=== PATIENT | female | born 1955 | race Two or more races ===

== ENCOUNTER 2018-01-17 06:54 | Day surgery (SDC) | payer BC ==
[~2018-01-17] VITALS: Ht 165.1 cm; Wt 72.6 kg
[2018-01-17] VITALS (7 sets, daily range): BP systolic 109–128; BP diastolic 48–75
--- NOTE | 2018-01-17 06:46 | Anethesia Preoperative Eval ---
Anesthesia Pre-op PMH/ROS General Date of Evaluation: Jan 17, 2018 Time of Evaluation: 06:46 Anesthesiologist: deborah ASA Score: ASA 1 Mallampati Score Class I : Soft palate, uvula, fauces, pillars visible Class II: Soft palate, uvula, fauces visible Class III: Soft palate, base of uvula visible Class IV: Only hard plate visible Mallampati Classification: Class II Surgeon: valeria Diagnosis: gerd Surgical Procedure: egd/colonoscopy Anesthesia History: none Social History: smoking - nonsmoker Family History: no anesthesia problems Allergies: Coded Allergies: No Known Allergies (Unverified , 01/14/18) Medications: see eMAR Anesthesia Pre-op Phys. Exam Physician Exam Last Vital Signs Date Time Temp Pulse Resp B/P (MAP) Pulse Ox O2 Delivery O2 Flow Rate FiO2 01/17/18 07:33 97.7 78 20 119/69 Room Air 97.7 Constitutional: NAD Neurologic: CN 2-12 intact Cardiovascular: RRR Respiratory: CTA Gastrointestinal: S/NT/ND Airway Exam Mallampati Score: Class II MO: full Neck: supple TMD: 2fb ROM: full Anesthesia Pre-op A/P Risk Assessment & Plan Assessment: asa1 Plan: mac Status Change Before Surgery: No Pre-Antibiotics Drug: MARIELENA Mallory Jan 17, 2018 06:46
[2018-01-17] MEDS ORDERED: Midazolam 2mg/2ml Inj IVP PRN (07:00)
[2018-01-17] MEDS ORDERED: fentaNYL 100 mcg/2 mL IV PRN (07:00)
[2018-01-17] MEDS ORDERED: LR 1000ml 1,000 ML IVLG SCH (07:00)
[2018-01-17] MEDS ORDERED: Atropine Inj 1mg/10ml Syr IV PRN (07:00)
[2018-01-17] MEDS ORDERED: DiphenhydrAMINE 50mg/ml Inj IVP PRN (07:00)
[2018-01-17] MEDS ORDERED: MULTIVITAMINS1 EAC2 ORAL (07:29)
[2018-01-17] MEDS ORDERED: CALCIUM500 M2 PO (07:29)
--- NOTE | 2018-01-17 07:45 | Short Stay Surgery H&P ---
History of Present Illness History of Present Illness Chief Complaint screening colon and abdominal pains HPI Gin Salas is a 63 year old female who was admitted on for GERD/ screening colon Patient History Allergies: Coded Allergies: No Known Allergies (Unverified , 01/14/18) PAST MEDICAL HISTORY: (1) Hyperlipidemia (2) H/O abdominal hysterectomy (3) External hemorrhoids Past Surgeries: Social History: Medication History Scheduled Calcium Carbonate (Calcium), 500 MG PO DA, (Reported) Multivitamins* (Multivitamins*), 1 TAB ORAL DAILY, (Reported) Review of Systems Cardiovascular: Reports: no symptoms Respiratory: Reports: no symptoms Skeletal: Reports: no symptoms Gastrointestinal: Reports: no symptoms Genitourinary: Reports: no symptoms Neurologic: Reports: no symptoms Endocrine: Reports: no symptoms Hematologic: Reports: no symptoms Physical Exam Vital Signs Last Vital Signs Date Time Temp Pulse Resp B/P (MAP) Pulse Ox O2 Delivery O2 Flow Rate FiO2 01/17/18 07:33 97.7 78 20 119/69 Room Air 97.7 Skin: normal HENT: normal Heart: normal Lungs: normal Abdomen: normal Extremities: normal Genitourinary: normal Plan Plan of Care Uper and lower GI endoscopy Preop Interventions None. Summary of Findings See the reports Final Diagnosis: Attestation Are the patient's medical conditions optimized for surgery? Attestation Response: yes KEEGAN MATOS Jan 17, 2018 07:45
--- NOTE | 2018-01-17 07:46 | Pre-Procedure Note/Attestation ---
Pre-Procedure Note/Attestation Complete Prior to Procedure Planned Procedure: left Procedure Narrative: Examination of the upper and the lower GI tract via endoscopy Indications for Procedure Pre-Operative Diagnosis: R/O colon polyp/CA and gastritis Attestation I attest that I discussed the nature of the procedure; its benefits; risks and complications; and alternatives (and the risks and benefits of such alternatives ), prior to the procedure, with the patient (or the patient's legal visitor services representative). I attest that, if there was a reasonable possibility of needing a blood transfusion, the patient (or the patient's legal visitor services representative) was given the [place] [employer] standardized written summary, pursuant to the [employer] Blood Safety Act ([place] Health and Safety Code # 1645, as amended). I attest that I re-evaluated the patient just prior to the surgery and that there has been no change in the patient's H&P, except as documented below: KEEGAN MATOS Jan 17, 2018 07:46
[2018-01-17] MEDS ORDERED: LR 1000ml ONE (08:00)
[2018-01-17] MEDS ORDERED: Propofol 200mg/20ml IV ONE (08:00)
[2018-01-17] MEDS ORDERED: Lidocaine 1% MPF 10mg/ml 5ml ONE (08:00)
--- NOTE | 2018-01-17 08:25 | Endoscopy Procedure Note ---
Endoscopy Procedure Note General Indication for Procedure: Screening colonoscopy/ GERDs Procedures Performed: EGD - Rare gastric hyperplstic polyps over greator curvator, (non significant) biopsied, otherwise normal upper GI endoscopy, random gastric biopsy also obtained from gastric body area., colonoscopy - Internal hemorrhoids with rare recto-sigmoids diverticular leasions, otherwise normal total colonoscopy with polyps noted. Specimen: yes Pt Tolerated Procedure Well: Yes Estimated Blood Loss: none Anesthesia Anesthesiologist: Dr. Victoria Anesthesia: moderate sedation Medications Medication Given: see anesthesia record Inserted Devices Implant(s) used?: No Quality Quality of Bowel Preparation: Fair Did scope reach the cecum?: Yes Was there any complications?: No GI Core Measures 50 yrs or older w/o bx or poly: Yes 10yrs. F/U not recommended: Yes 10 yrs. F/U needed: Yes 18 years or older w/prev. colo: No <3yrs. since last colonoscopy: No System Reason:<3 yrs.: Last colonoscopy >= to 3yrs: Yes KEEGAN MATOS Jan 17, 2018 08:25
--- NOTE | 2018-01-17 08:26 | Discharge Instructions ---
Discharge Instructions Discharge Instructions Follow up with: See the docotor in office after two weeks. For Congestive Heart Failure Reminder Report to your physician any weight gain of 5 pounds or more in one week. KEEGAN MATOS Jan 17, 2018 08:25
--- NOTE | 2018-01-17 08:40 | Immediate Post-Op Evaluation ---
Immediate Post-Op Evalulation Immediate Post-Op Evalulation Procedure: egd/colonoscopy Date of Evaluation: Jan 17, 2018 Time of Evaluation: 08:37 IV Fluids: 200ml lr Blood Products: none Estimated Blood Loss: negligible Blood Pressure Systolic: 128 Blood Pressure Diastolic: 54 Pulse Rate: 60 Respiratory Rate: 18 O2 Sat by Pulse Oximetry: 97 Temperature (Fahrenheit): 97.2 Pain Score (1-10): 0 Nausea: No Vomiting: No Complications none Patient Status: awake, reacts, patent Hydration Status: adequate Drug: MARIELENA Mallory Jan 17, 2018 08:40
--- NOTE | 2018-01-17 08:41 | 48 Hour Post Anesthesia Eval ---
Post Anesthesia Evaluation Procedure: egd/colonoscopy Date of Evaluation: Jan 17, 2018 Time of Evaluation: 08:40 Blood Pressure Systolic: 113 0: 56 Pulse Rate: 66 Respiratory Rate: 18 Temperature (Fahrenheit): 97.2 O2 Sat by Pulse Oximetry: 97 Airway: patent Nausea: No Vomiting: No Pain Intensity: 0 Hydration Status: adequate Cardiopulmonary Status: stable Mental Status/LOC: patient returned to baseline Post-Anesthesia Complications: none Follow-up care needed: N/A MARIELENA HERNANDEZ Jan 17, 2018 08:41
--- NOTE | 2018-01-17 16:15 | Procedure Note ---
DATE OF PROCEDURE: 01/17/2018 PROCEDURE: Esophagogastroduodenoscopy with biopsy. SURGEON: Ana Mieer M.D. PREOPERATIVE DIAGNOSES: Abdominal pain and GERD. POSTOPERATIVE DIAGNOSIS: Rare hyperplastic gastric polyps found in the greater curvature, biopsy nonsignificant, otherwise, complete normal upper GI endoscopy. Biopsy was also obtained from gastric body. MEDICATION USED: Per Dr. Victoria, anesthesiologist. INSTRUMENT: GIF Olympus upper GI video endoscope. DESCRIPTION OF PROCEDURE: The patient, after arriving endoscopy unit, was told about risks and benefits of the procedure, which she accepted and signed informed consent. She was then put on the left lateral decubitus position. After adequate IV sedation, the scope was gently passed through the cricopharyngeal area, was lodged into the upper esophagus and gradually advanced towards the gastroesophageal junction. The entire length of the esophagus looked normal without any evidence of varices, inflammatory process, stricture, polyps, etc. GE junction also looked completely normal. No Castillo's or hiatal hernia noted. The scope at this time was guided into the stomach. Gastric cavity was distended and gradually, the areas of the fundus and the body and the antrum were examined. An incidental findings of very few 2 mm hyperplastic type polypoid lesion was found over the mid body of the greater curvature of the stomach. These areas were biopsied as well as obtaining another biopsy from gastric body and sent to the pathology lab. The areas of the antrum, pyloric channel, duodenum, the first and second portion of it were all completely normal. At this point, the scope was pulled back into the stomach. A retroflexion maneuver was applied. The area of the gastroesophageal junction was examined in a closer fashion, which revealed no abnormalities. At this point, the scope was pulled out and procedure was terminated. The patient tolerated the procedure well. Ana Meier M.D. DR: DEQUAN JOB#: [id number] CC:
--- NOTE | 2018-01-17 16:30 | Procedure Note ---
DATE OF PROCEDURE: 01/17/2018 PROCEDURE: Total colonoscopy. SURGEON: Ana Meier M.D. PREOPERATIVE DIAGNOSIS: Screening colonoscopy. POSTOPERATIVE DIAGNOSES: 1. Internal hemorrhoids. 2. A very rare diverticular lesions found in the rectosigmoid angle, otherwise, completely normal study up to the base of the cecum as examined. MEDICATION USED: Per Dr. Victoria, anesthesiologist. INSTRUMENT: GIF Olympus video colonoscope. DESCRIPTION OF PROCEDURE: The patient, after arriving at endoscopy unit, was told about risks and benefits of the procedure, which she accepted and signed informed consent. She was then put in the left lateral decubitus position and examination of the rectoanal area revealed evidence of minimal internal hemorrhoids of no great significance and they were not friable. At this point, the scope was retroflexed and very close examination of rectal mucosa did not reveal any abnormalities. At this time, the scope was passed through rather redundant left colon with occasional findings of few diverticular lesions of no great significance. The scope was gradually advanced into the left descending colon, transverse, and finally right ascending colon, all the way to the base of the cecum. All these areas remained to be completely normal without any pathology. Finally, within 6 minutes, the scope was gradually pulled out and reexamination of the colon did not reveal any polyps or pathological findings as I mentioned. Colon cleanup was also fair. The patient tolerated the procedure well and left the endoscopy room in a good condition. Ana Meier M.D. DR: DEQUAN JOB#: [id number] CC:
== END 2018-01-17 09:30 | disposition home or self-care (01) ==
LOC: GAS 06:54
DX: Z12.11 Encounter for screening for malignant neoplasm of colon (principal); K64.8 Other hemorrhoids; K29.50 Unspecified chronic gastritis without bleeding; K21.9 Gastro-esophageal reflux disease without esophagitis; K31.7 Polyp of stomach and duodenum; E78.5 Hyperlipidemia, unspecified; Z90.710 Acquired absence of both cervix and uterus; K63.9 Disease of intestine, unspecified
CPT/HCPCS: 43239; 45378; J2704; J7120; 94003; 94150